=== PATIENT | female | born 1950 | race Caucasian/White ===

== ENCOUNTER 2017-08-11 11:30 | Outpatient (CLI) | payer MEDICARE, OTHER ==
--- NOTE | 2017-08-11 15:58 | XRAY Report ---
DATE OF SERVICE: 08/11/2017 TWO VIEW CHEST: 08/11/2017 CLINICAL INDICATION: Shortness of breath. COMPARISON: 12/10/2013. FINDINGS: Frontal and lateral views of the chest demonstrate a normal cardiac silhouette. The lungs appear hyperinflated, suggestive of COPD. No focal consolidation, effusion, or pneumothorax is present. IMPRESSION: HYPERINFLATION, BUT NO EVIDENCE OF ACUTE CARDIOPULMONARY DISEASE. TD: 08/11/2017 16:57
== END 2017-08-11 11:31 | disposition home or self-care (01) ==
LOC: DI.S 11:30
PROVIDERS: ATTEND Physician Assistant
DX: R06.02 Shortness of breath (principal)
CPT/HCPCS: 71046

== ENCOUNTER 2017-08-14 11:17 | Outpatient (CLI) | payer MEDICARE, OTHER ==
[2017-08-14 17:51] LABS: HB2 TOTAL 14.9 g/dL; HEMOGLOBIN A1C 0.64 g/dL; HEMOGLOBIN A1C % 6.1 % (4.6-6.2)
[2017-08-14 17:55] LABS: ALBUMIN/GLOBULIN RATIO 1.3 (1.0-2.2); ALKALINE PHOSPHATASE 70 IU/L (42-121); ALT ALANINE AMINOTRANSFERASE 20 IU/L (10-60); AST ASPARTATE AMINOTRANSFERASE 22 IU/L (10-42); BILIRUBIN,TOTAL 0.4 mg/dL (0.2-1.0); BUN - BLOOD UREA NITROGEN 26 mg/dL (6-20); CALCIUM 9.6 mg/dL (8.5-10.3); CARBON DIOXIDE - CO2 27 mmol/L (21-32); CHLORIDE 103 mmol/L (101-111); CHOL/HDL RATIO 5.7 (<4.4); CHOLESTEROL 255 mg/dL; CREATININE 0.8 mg/dL (0.4-1.0); GFR - MDRD 71 (>89); GLUCOSE 110 mg/dL (70-100); HDL CHOLESTEROL 45 mg/dL; LDL CHOLESTEROL,CALCULATED 158 mg/dL; LDL/HDL RATIO 3.5 (<4.4); SODIUM 138 mmol/L (135-145); TOTAL PROTEIN 7.2 g/dL (6.7-8.2); VLDL CHOLESTEROL 52 mg/dL
[2017-08-14 18:15] LABS: BASOPHILS # (AUTO) 0.1 10^3/uL (0.0-0.1); BASOPHILS % (AUTO) 1.2 %; EOSINOPHILS # (AUTO) 0.4 10^3/uL (0.0-0.7); EOSINOPHILS % (AUTO) 5.8 %; HGB - HEMOGLOBIN 13.9 g/dL (12.0-16.0); LYMPHOCYTES # (AUTO) 1.9 10^3/uL (1.5-3.5); LYMPHOCYTES % (AUTO) 29.1 %; MEAN CORPUSCULAR HEMOGLOBIN 28.5 pg (27.0-31.0); MEAN CORPUSCULAR HGB CONC 31.9 g/dL (32.0-36.0); MEAN CORPUSCULAR VOLUME 89.4 fL (81.0-99.0); MONOCYTES # (AUTO) 0.5 10^3/uL (0.0-1.0); MONOCYTES % (AUTO) 7.7 %; NEUTROPHILS # (AUTO) 3.7 10^3/uL (1.5-6.6); NEUTROPHILS % (AUTO) 56.2 %; PLT - PLATELET COUNT 191 10^3/uL (130-450); RED BLOOD COUNT 4.88 10^6/uL (4.20-5.40); WHITE BLOOD COUNT 6.6 x10^3/uL (4.8-10.8)
== END 2017-08-14 11:18 | disposition home or self-care (01) ==
LOC: LAB.F 11:17
PROVIDERS: ATTEND Physician Assistant
DX: I10 Essential (primary) hypertension (principal); E78.5 Hyperlipidemia, unspecified; R73.01 Impaired fasting glucose
CPT/HCPCS: 36415; 80053; 80061; 83036; 83721; 85025

== ENCOUNTER 2017-11-21 11:29 | Outpatient (CLI) | payer MEDICARE, OTHER ==
[2017-11-21 18:50] LABS: ALBUMIN 4.1 g/dL (3.2-5.5); ALKALINE PHOSPHATASE 80 IU/L (42-121); ALT ALANINE AMINOTRANSFERASE 24 IU/L (10-60); AST ASPARTATE AMINOTRANSFERASE 26 IU/L (10-42); BILIRUBIN,DIRECT 0.1 mg/dL (0.1-0.5); BILIRUBIN,TOTAL 0.7 mg/dL (0.2-1.0); CHOL/HDL RATIO 3.1 (<4.4); CHOLESTEROL 129 mg/dL; GLUCOSE,FASTING 102 mg/dL (70-100); HDL CHOLESTEROL 41 mg/dL; LDL CHOLESTEROL,CALCULATED 63 mg/dL; LDL/HDL RATIO 1.5 (<4.4); TOTAL PROTEIN 7.5 g/dL (6.7-8.2); VLDL CHOLESTEROL 25 mg/dL
[2017-11-21 19:18] LABS: HB2 TOTAL 15.7 g/dL; HEMOGLOBIN A1C 0.64 g/dL; HEMOGLOBIN A1C % 5.9 % (4.6-6.2)
== END 2017-11-21 11:30 | disposition home or self-care (01) ==
LOC: LAB.F 11:29
PROVIDERS: ATTEND Physician Assistant
DX: E78.5 Hyperlipidemia, unspecified (principal); R73.01 Impaired fasting glucose
CPT/HCPCS: 36415; 80061; 80076; 82947; 83036; 83721

== ENCOUNTER 2018-01-16 08:13 | Emergency (ER) | payer MEDICARE, OTHER ==
[2018-01-16] MEDS ORDERED: diltiaZEM INJ 5 MG/ML VIAL IVP STA (08:37)
[2018-01-16] MEDS ORDERED: SODIUM CHLORIDE 0.9% 1,000 ML IV ONE (08:37)
[2018-01-16 09:12] LABS: BASOPHILS # (AUTO) 0.1 10^3/uL (0.0-0.1); BASOPHILS % (AUTO) 0.8 %; EOSINOPHILS # (AUTO) 0.4 10^3/uL (0.0-0.7); EOSINOPHILS % (AUTO) 4.3 %; HGB - HEMOGLOBIN 14.2 g/dL (12.0-16.0); LYMPHOCYTES # (AUTO) 2.1 10^3/uL (1.5-3.5); LYMPHOCYTES % (AUTO) 23.4 %; MEAN CORPUSCULAR HEMOGLOBIN 29.5 pg (27.0-31.0); MEAN CORPUSCULAR HGB CONC 32.8 g/dL (32.0-36.0); MEAN CORPUSCULAR VOLUME 90.1 fL (81.0-99.0); MEAN PLATELET VOLUME 8.1 fL (7.9-10.8); MONOCYTES # (AUTO) 0.7 10^3/uL (0.0-1.0); MONOCYTES % (AUTO) 8.4 %; NEUTROPHILS # (AUTO) 5.5 10^3/uL (1.5-6.6); NEUTROPHILS % (AUTO) 63.1 %; PLT - PLATELET COUNT 158 10^3/uL (130-450); WHITE BLOOD COUNT 8.8 x10^3/uL (4.8-10.8)
--- NOTE | 2018-01-16 09:18 | ED Physician Documentation ---
PD HPI LOWER EXT INJURY - Stated complaint Stated Complaint: R LEG PX - Chief complaint Chief Complaint: Ext Problem - History obtained from History obtained from: Patient - History of Present Illness PD HPI LOW EXT INJURY LOCATION: Right, Foot, Calf Timing - details: Still present Worsened by: Other (weight bearing) Associated symptoms: Swelling - Additional information Additional information: The patient is a 67-year-old female with history of venous stasis dermatitis, who presents with increased swelling and pain in her right foot and calf. She has been treating a blister on her right heel that appeared at least 1 month ago after wearing shoes that were too tight. She has been treating it topically with Neosporin, and she has noticed some healing of the wound. However over the past week she has noticed increased swelling of her calf, and pain associated with weightbearing. She denies fever or shortness of breath. Review of Systems Constitutional: denies: Fever Nose: denies: Congestion Cardiac: denies: Chest pain / pressure Respiratory: denies: Dyspnea, Cough GI: denies: Abdominal Pain, Nausea, Vomiting : denies: Dysuria Skin: reports: Lesions (right heel) Musculoskeletal: reports: Extremity swelling (right calf) Neurologic: denies: Focal weakness, Numbness, Headache PD PAST MEDICAL HISTORY - Past Medical History Past Medical History: Yes Cardiovascular: Hypertension, High cholesterol Respiratory: Tuberculosis : None HEENT: Other Musculoskeletal: Rheumatoid arthritis, Gout, Chronic back pain Derm: Other - Past Surgical History Past Surgical History: Yes Ortho: Hip replacement, Carpal Tunnel surgery /[employer]: Mastectomy HEENT: Cataracts Derm: Skin cancer surgery - Present Medications Home Medications: Ambulatory Orders Medication Instructions Recorded Confirmed Levofloxacin 500 mg PO DAILY 08/06/13 08/06/13 Carvedilol [Coreg] 0 mg PO DAILY 08/10/13 08/10/13 Lisinopril [Zestril] 10 mg PO DAILY 08/10/13 08/10/13 Doxycycline [Vibramycin] 100 mg PO BID 10/22/13 10/22/13 - Allergies Allergies/Adverse Reactions: Allergies Allergy/AdvReac Type Severity Reaction Status Date / Time ethambutol [Ethambutol] Allergy Unknown Rash Verified 01/16/18 09:55 metoprolol Allergy Unknown Rash Verified 01/16/18 09:55 oxymetazoline [Oxymetazoline] Allergy Unknown Rash Verified 01/16/18 09:55 Sulfa (Sulfonamide Allergy Unknown Rash Verified 01/16/18 09:55 Antibiotics) - Social History Does the pt smoke?: No Smoking Status: Never smoker Does the pt drink ETOH?: No Does the pt have substance abuse?: No - Immunizations Immunizations: TDAP current <10years PD ED PE NORMAL - Vitals Vital signs reviewed: Yes (hypertensive) - General General: Alert and oriented X 3, Well developed/nourished, Other (Overweight) - HEENT HEENT: Atraumatic - Neck Neck: No adenopathy, No JVD - Cardiac Cardiac: RRR, No murmur - Respiratory Respiratory: No respiratory distress, Clear bilaterally - Abdomen Abdomen: Soft, Non tender - Back Back: No CVA TTP - Derm Derm: No rash - Extremities Extremities: Other (There is a 1 cm diameter healing open wound on the posterior aspect of the right heel, over the Achilles. There is brawny discoloration to the anterior shins bilaterally, and 1+ pedal edema on the right. There is associated mild tenderness to palpation of the calf.) - Neuro Neuro: Alert and oriented X 3, No motor deficit, Normal speech Results - Vitals Vitals: Vital Signs - 24 hr 01/16/18 08:40 Heart Rate 97 Respiratory 15 Rate Blood Pressure 170/118 H O2 Saturation 95 Oxygen O2 Source Room air - Labs Labs: Laboratory Tests 01/16/18 01/16/18 01/16/18 09:05 09:05 09:05 WBC 8.8 RBC 4.80 Hgb 14.2 Hct 43.2 MCV 90.1 MCH 29.5 MCHC 32.8 RDW 14.0 Plt Count 158 MPV 8.1 Neut # (Auto) 5.5 Lymph # (Auto) 2.1 [place] # (Auto) 0.7 Eos # (Auto) 0.4 Baso # (Auto) 0.1 Absolute Nucleated RBC 0.00 Nucleated RBC % 0.0 Sodium 137 Potassium 4.3 Chloride 102 Carbon Dioxide 26 Anion Gap 9.0 BUN 20 Creatinine 0.9 Estimated GFR (MDRD) 62 L Glucose 115 H Calcium 9.6 Total Bilirubin 0.5 AST 26 ALT 25 Alkaline Phosphatase 75 Troponin I < 0.04 Total Protein 7.6 Albumin 3.7 Globulin 3.9 Albumin/Globulin Ratio 0.9 L Lipase 37 - Rads (name of study) Venous U/S right LE Radiology: Prelim report reviewed, See rad report (Normal. No evidence for DVT. ) PD MEDICAL DECISION MAKING - ED course Complexity details: reviewed results, re-evaluated patient, considered differential, d/w patient ED course: Patient's presentation is most consistent with a healing wound on the right heel , with longtime leg swelling from venous stasis. Ultrasound of the right lower extremity reveals no evidence of DVT. I discussed with her the results of the ultrasound, symptomatic treatment and wound care, as well as potentially worrisome signs or symptoms that should prompt reevaluation in the emergency department - Sepsis Event Vital Signs: Vital Signs - 24 hr 01/16/18 08:40 Heart Rate 97 Respiratory 15 Rate Blood Pressure 170/118 H O2 Saturation 95 Oxygen O2 Source Room air Departure - Departure Disposition: 01 Home, Self Care Clinical Impression: Traumatic open wound of right lower leg with delayed healing Clinical Impression: (Ruled Out): Deep vein thrombosis Condition: Stable Instructions: ED Wound Care Follow-Up: Tiny Chandler PA [Primary Care Provider] - Comments: Keep the wound clean, and apply antibiotic ointment daily. Keep your right leg elevated as much the time as possible. Follow up with your primary physician as planned. Return to the emergency department if you develop increasing redness or swelling of the leg or wound site, or otherwise worsening symptoms.
[2018-01-16 09:29] LABS: ALBUMIN 3.7 g/dL (3.2-5.5); ALBUMIN/GLOBULIN RATIO 0.9 (1.0-2.2); BILIRUBIN,TOTAL 0.5 mg/dL (0.2-1.0); CALCIUM 9.6 mg/dL (8.5-10.3); CREATININE 0.9 mg/dL (0.4-1.0); TOTAL PROTEIN 7.6 g/dL (6.7-8.2)
--- NOTE | 2018-01-16 10:28 | Ultrasound Report ---
Procedure Date: 01/16/2018 Accession Number: [id number] / [id number] Procedure: US - Duplex Ext Veins Right CPT Code: FULL RESULT: EXAM: Duplex Ext Veins Right DATE: 01/16/2018 10:24 AM CLINICAL HISTORY: Right calf pain and swelling. COMPARISON: None. TECHNIQUE: Real-time sonographic vascular imaging was performed by the drywall stripper through the lower extremity utilizing both color-flow and Doppler spectral analysis. Multiple canvas products sales representative static images were saved for review. FINDINGS: Common Femoral Vein (CFV): Normal. Superficial Femoral Vein (SFV) Prox: Normal. Superficial Femoral Vein (SFV) Mid: Normal. Superficial Femoral Vein (SFV) Dist: Normal. Popliteal Vein: Normal. Posterior Tibial Veins: Normal. Peroneal Veins: Normal. Other: None. IMPRESSION: Normal. No evidence for deep venous thrombosis. [facility]
[2018-01-16 11:23] VITALS: BP 164/108
== END 2018-01-16 11:23 | disposition home or self-care (01) ==
LOC: ED 08:13
DX: S81.801A Unspecified open wound, right lower leg, initial encounter (principal); X58.XXXA Exposure to other specified factors, initial encounter; M06.9 Rheumatoid arthritis, unspecified; I10 Essential (primary) hypertension; E78.00 Pure hypercholesterolemia, unspecified
CPT/HCPCS: 36415; 80053; 83690; 84484; 85025; 99283

== ENCOUNTER 2018-03-27 10:50 | Outpatient (CLI) | payer MEDICARE, OTHER ==
[2018-03-27 18:05] LABS: CHOL/HDL RATIO 3.5 (<4.4); CHOLESTEROL 164 mg/dL; HB2 TOTAL 15.4 g/dL; HDL CHOLESTEROL 47 mg/dL; HEMOGLOBIN A1C 0.7 g/dL; HEMOGLOBIN A1C % 6.3 % (4.6-6.2); LDL CHOLESTEROL,CALCULATED 85 mg/dL; LDL/HDL RATIO 1.8 (<4.4); VLDL CHOLESTEROL 32 mg/dL
== END 2018-03-27 10:51 | disposition home or self-care (01) ==
LOC: LAB.F 10:50
PROVIDERS: ATTEND Physician Assistant
DX: E78.5 Hyperlipidemia, unspecified (principal); R73.01 Impaired fasting glucose
CPT/HCPCS: 36415; 80061; 83036; 83721

== ENCOUNTER 2018-06-23 09:10 | Outpatient (CLI) | payer MEDICARE, OTHER ==
[2018-06-23 18:09] LABS: BASOPHILS # (AUTO) 0.1 10^3/uL (0.0-0.1); BASOPHILS % (AUTO) 0.7 %; EOSINOPHILS # (AUTO) 0.4 10^3/uL (0.0-0.7); HGB - HEMOGLOBIN 14.5 g/dL (12.0-16.0); LYMPHOCYTES # (AUTO) 1.4 10^3/uL (1.5-3.5); LYMPHOCYTES % (AUTO) 18.4 %; MEAN CORPUSCULAR HEMOGLOBIN 28.8 pg (27.0-31.0); MEAN PLATELET VOLUME 8.9 fL (7.9-10.8); MONOCYTES # (AUTO) 0.5 10^3/uL (0.0-1.0); MONOCYTES % (AUTO) 6.9 %; NEUTROPHILS # (AUTO) 5.4 10^3/uL (1.5-6.6); PLT - PLATELET COUNT 175 10^3/uL (130-450); RED BLOOD COUNT 5.04 10^6/uL (4.20-5.40); RED CELL DISTRIBUTION WIDTH 13.7 % (12.0-15.0); WHITE BLOOD COUNT 7.8 x10^3/uL (4.8-10.8)
[2018-06-23 18:29] LABS: ALBUMIN/GLOBULIN RATIO 1.1 (1.0-2.2); BILIRUBIN,TOTAL 0.5 mg/dL (0.2-1.0); CALCIUM 9.6 mg/dL (8.5-10.3); CREATININE 0.8 mg/dL (0.4-1.0); TOTAL PROTEIN 7.5 g/dL (6.7-8.2)
== END 2018-06-23 09:11 | disposition home or self-care (01) ==
LOC: LAB.F 09:10
PROVIDERS: ATTEND Nurse Practitioner Family
DX: L53.9 Erythematous condition, unspecified (principal)
CPT/HCPCS: 36415; 80053; 85025

== ENCOUNTER 2018-06-23 10:15 | Outpatient (CLI) | payer MEDICARE, OTHER ==
--- NOTE | 2018-06-23 15:06 | XRAY Report ---
Reason: ERYTHEMATOUS CONDITION,UNSPECIFIED Procedure Date: 06/23/2018 Accession Number: [id number] / [id number] Procedure: XR - Foot 3 View RT CPT Code: FULL RESULT: EXAM: RIGHT FOOT RADIOGRAPHY EXAM DATE: 06/23/2018 10:39 AM. CLINICAL HISTORY: ERYTHEMATOUS CONDITION,UNSPECIFIED. COMPARISON: MRI 07/18/2006. TECHNIQUE: 3 views. FINDINGS: Bones: Acute or subacute fracture of the first digit distal phalanx. There is sclerosis, soft tissue swelling. Chronic fracture of second metatarsus Joints: Normal. No subluxations. Soft Tissues: Soft tissue swelling. IMPRESSION: Acute to subacute fracture of the first digit distal phalanx. If there is clinical concern for infection MRI can be completed [facility]
== END 2018-06-23 10:16 | disposition home or self-care (01) ==
LOC: DI 10:15
PROVIDERS: ATTEND Nurse Practitioner Family
DX: S92.421A Displaced fracture of distal phalanx of right great toe, initial encounter for closed fracture (principal)
CPT/HCPCS: 36415; 80053; 85025

== ENCOUNTER 2018-07-15 15:44 | Outpatient (CLI) | payer MEDICARE, OTHER ==
--- NOTE | 2018-07-16 12:51 | CT Report ---
Reason: UNSPECIFIED FRACTURE OF RIGHT TOE,SUBSEQUENT ENCOU Procedure Date: 07/15/2018 Accession Number: [id number] / [id number] Procedure: CT - Lower Extremity Right W/O CPT Code: FULL RESULT: EXAM: RIGHT FOOT CT WITHOUT CONTRAST EXAM DATE: 07/15/2018 03:56 PM. CLINICAL HISTORY: Right toe fracture. Patient stubbed toe. COMPARISON: Radiograph 06/23/2018. TECHNIQUE: Thin-section coronal images were acquired of the foot without contrast. Post-processing: Axial and sagittal reformats. Other: None. In accordance with CT protocol optimization, one or more of the following dose reduction techniques were utilized for this exam: automated exposure control, adjustment of mA and/or KV based on patient size, or use of iterative reconstructive technique. FINDINGS: Bones: A transverse fracture through the proximal portion of the first distal phalanx is extra-articular. There is less than 1 mm the bone fragments. Some nonbridging callus formation has formed since the prior examination. Joints: The joint spaces are preserved. No calcified loose bodies. No large effusion. Musculature: Normal. No fatty atrophy. Other: Extensive subcutaneous edema surrounds the ankle. No tibiotalar joint effusion. IMPRESSION: The first distal phalanx fracture is not yet united. [facility]
== END 2018-07-15 15:45 | disposition home or self-care (01) ==
LOC: DI 15:44
PROVIDERS: ATTEND Physician Assistant
DX: S92.421D Displaced fracture of distal phalanx of right great toe, subsequent encounter for fracture with routine healing (principal)

== ENCOUNTER 2018-12-29 13:24 | Outpatient (CLI) | payer MEDICARE, OTHER ==
[~2018-12-29 13:24] MED LIST: ALBUTEROL NEB 2.5 MG/3 ML INH SCH
== END 2018-12-29 13:25 | disposition home or self-care (01) ==
LOC: RT 13:24
PROVIDERS: ATTEND Nurse Practitioner Family
DX: R06.02 Shortness of breath (principal)
CPT/HCPCS: 94060

== ENCOUNTER 2019-03-31 07:55 | Outpatient (CLI) | payer MEDICARE, OTHER ==
[2019-03-31 10:29] LABS: ALBUMIN/GLOBULIN RATIO 1.1 (1.0-2.2); ALKALINE PHOSPHATASE 82 IU/L (42-121); ALT ALANINE AMINOTRANSFERASE 26 IU/L (10-60); AST ASPARTATE AMINOTRANSFERASE 21 IU/L (10-42); BILIRUBIN,TOTAL 0.8 mg/dL (0.2-1.0); BUN - BLOOD UREA NITROGEN 30 mg/dL (6-20); CARBON DIOXIDE - CO2 31 mmol/L (21-32); CHLORIDE 102 mmol/L (101-111); CHOL/HDL RATIO 2.7 (<4.4); CHOLESTEROL 124 mg/dL; GFR - MDRD 55 (>89); GLUCOSE 147 mg/dL (70-100); HDL CHOLESTEROL 46 mg/dL; LDL CHOLESTEROL,CALCULATED 54 mg/dL; LDL/HDL RATIO 1.2 (<4.4); SODIUM 141 mmol/L (135-145); TOTAL PROTEIN 7.6 g/dL (6.7-8.2); VLDL CHOLESTEROL 24 mg/dL
[2019-03-31 10:45] LABS: HB2 TOTAL 14.2 g/dL; HEMOGLOBIN A1C 0.71 g/dL; HEMOGLOBIN A1C % 6.7 % (4.6-6.2)
== END 2019-03-31 07:56 | disposition home or self-care (01) ==
LOC: LAB.S 07:55
PROVIDERS: ATTEND Physician Assistant
DX: E78.2 Mixed hyperlipidemia (principal); R73.01 Impaired fasting glucose
CPT/HCPCS: 36415; 80053; 80061; 83036; 83721

== ENCOUNTER 2020-01-04 12:33 | Outpatient (CLI) | payer MEDICARE, OTHER ==
--- NOTE | 2020-01-04 17:18 | Ultrasound Report ---
PROCEDURE: Duplex Lwr Ext Arterial RT INDICATIONS: PERIPHERAL VASCULAR DISEASE TECHNIQUE: Color and pulse Doppler interrogation was performed of the right lower extremity arterial system, wit h image documentation. COMPARISON: Ultrasound JAMMIE 01/04/2020 FINDINGS: Common femoral artery: 168 cm/sec, with monophasic flow. Deep femoral artery: 76 cm/sec, with monophasic flow. Proximal superficial femoral artery: 49 cm/sec, with monophasic flow. Mid superficial femoral artery: 45 cm/sec, with monophasic flow. Distal superficial femoral artery: 37 cm/sec, with monophasic flow. Popliteal artery: 65 cm/sec, with monophasic flow. Posterior tibial artery: 30 cm/sec, with monophasic flow. Anterior tibial artery/dorsalis pedis: 55/14 cm/sec, with monophasic flow. [place]-scale imaging description: Scattered vascular calcifications. IMPRESSION: Diffuse monophasic flow with decreased waveform suggestive of diffuse vascular disease. Reviewed by: Janee De Los Santos MD on 01/04/2020 5:16 PM PDT Approved by: Janee De Los Santos MD on 01/04/2020 5:16 PM PDT Station ID: [id number]
--- NOTE | 2020-01-04 17:19 | Ultrasound Report ---
PROCEDURE: Ankle Brachial Index INDICATIONS: PERIPHERAL VASCULAR DISEASE TECHNIQUE: Ankle-brachial indices were obtained bilaterally and recorded. COMPARISONS: None. FINDINGS: Right ankle brachial index (JAMMIE): 0.49 Left ankle brachial index (JAMMIE): 0.76 Healing potential: Ankle pressures >55 mm Hg in non-diabetics and >80 mm Hg in diabetics are likely to achieve primary h ealing of ischemic foot ulcers. Toe pressures >30 mm Hg are likely to achieve primary healing of ischemic foot ulcers, toe or transme tatarsal amputations. IMPRESSION: 1. Severe right arterial disease based on JAMMIE. 2. Moderate left arterial disease based on JAMMIE. Reviewed by: Janee De Los Santos MD on 01/04/2020 5:18 PM PDT Approved by: Janee De Los Santos MD on 01/04/2020 5:18 PM PDT Station ID: [id number]
== END 2020-01-04 12:34 | disposition home or self-care (01) ==
LOC: DI 12:33
PROVIDERS: ATTEND Nurse Practitioner Family
DX: I73.9 Peripheral vascular disease, unspecified (principal)
CPT/HCPCS: 93922

== ENCOUNTER 2020-04-07 10:35 | Outpatient (CLI) | payer MEDICARE, OTHER ==
[2020-04-07 15:59] LABS: BUN - BLOOD UREA NITROGEN 25 mg/dL (6-20); CALCIUM 9.6 mg/dL (8.5-10.3); CARBON DIOXIDE - CO2 26 mmol/L (21-32); CHLORIDE 103 mmol/L (101-111); CHOL/HDL RATIO 3.3 (<4.4); CHOLESTEROL 137 mg/dL; CREATININE 1.1 mg/dL (0.4-1.0); GLUCOSE 137 mg/dL (70-100); HDL CHOLESTEROL 41 mg/dL; LDL CHOLESTEROL,CALCULATED 52 mg/dL; LDL/HDL RATIO 1.3 (<4.4); SODIUM 139 mmol/L (135-145); VLDL CHOLESTEROL 44 mg/dL
== END 2020-04-07 10:36 | disposition home or self-care (01) ==
LOC: LAB.S 10:35
PROVIDERS: ATTEND Internal Medicine Cardiovascular Disease
DX: I10 Essential (primary) hypertension (principal); I74.09 Other arterial embolism and thrombosis of abdominal aorta
CPT/HCPCS: 36415; 80048; 80061; 83721

== ENCOUNTER 2020-06-02 10:47 | Outpatient (CLI) | payer MEDICARE, OTHER ==
[2020-06-02 15:12] LABS: CREATININE 1.5 mg/dL (0.4-1.0)
== END 2020-06-02 10:48 | disposition home or self-care (01) ==
LOC: LAB.S 10:47
PROVIDERS: ATTEND Nurse Practitioner Family
DX: R94.4 Abnormal results of kidney function studies (principal)
CPT/HCPCS: 36415; 80048

== ENCOUNTER 2020-06-06 16:16 | Outpatient (CLI) | payer MEDICARE, OTHER ==
[2020-06-06 20:05] LABS: PARTIAL THROMBOPLASTIN TIME 27.5 secs (24.9-33.3)
[2020-06-06 20:27] LABS: BASOPHILS # (AUTO) 0.1 10^3/uL (0.0-0.1); BASOPHILS % (AUTO) 0.7 %; EOSINOPHILS # (AUTO) 0.2 10^3/uL (0.0-0.7); EOSINOPHILS % (AUTO) 3.2 %; HGB - HEMOGLOBIN 13.1 g/dL (12.0-16.0); LYMPHOCYTES # (AUTO) 1.4 10^3/uL (1.5-3.5); LYMPHOCYTES % (AUTO) 21.2 %; MEAN CORPUSCULAR HEMOGLOBIN 28.4 pg (27.0-31.0); MEAN CORPUSCULAR HGB CONC 30.8 g/dL (32.0-36.0); MEAN CORPUSCULAR VOLUME 92.2 fL (81.0-99.0); MEAN PLATELET VOLUME 11.2 fL (7.9-10.8); MONOCYTES # (AUTO) 0.6 10^3/uL (0.0-1.0); MONOCYTES % (AUTO) 9.1 %; NEUTROPHILS # (AUTO) 4.4 10^3/uL (1.5-6.6); NEUTROPHILS % (AUTO) 65.5 %; PLT - PLATELET COUNT 241 10^3/uL (130-450); RED BLOOD COUNT 4.62 10^6/uL (4.20-5.40); RED CELL DISTRIBUTION WIDTH 13.8 % (12.0-15.0); WHITE BLOOD COUNT 6.8 x10^3/uL (4.8-10.8)
[2020-06-06 20:37] LABS: INR 1.1 (0.8-1.2); PT - PROTHROMBIN TIME 12.6 secs (9.9-12.6)
[2020-06-06 20:40] LABS: ALBUMIN 3.9 g/dL (3.2-5.5); ALBUMIN/GLOBULIN RATIO 1.1 (1.0-2.2); BILIRUBIN,TOTAL 0.3 mg/dL (0.2-1.0); CALCIUM 9.3 mg/dL (8.5-10.3); TOTAL PROTEIN 7.5 g/dL (6.7-8.2)
[2020-06-06 21:09] LABS: HEMOGLOBIN A1c% 6.7 % (4.27-6.07)
== END 2020-06-06 16:17 | disposition home or self-care (01) ==
LOC: LAB.S 16:16
PROVIDERS: ATTEND Nurse Practitioner Family
DX: Z01.818 Encounter for other preprocedural examination (principal); R19.7 Diarrhea, unspecified; E11.9 Type 2 diabetes mellitus without complications
CPT/HCPCS: 36415; 80053; 83036; 84443; 85025; 85610; 85730

== ENCOUNTER 2020-12-19 15:45 | Outpatient (CLI) | payer MEDICARE, OTHER ==
[2020-12-19 20:12] LABS: ESTIMATED AVERAGE GLUCOSE 146 mg/dL (70-100); HEMOGLOBIN A1c% 6.7 % (4.27-6.07)
== END 2020-12-19 15:46 | disposition home or self-care (01) ==
LOC: LAB.S 15:45
PROVIDERS: ATTEND Nurse Practitioner Family
DX: E11.69 Type 2 diabetes mellitus with other specified complication (principal)
CPT/HCPCS: 36415; 83036

== ENCOUNTER 2021-08-15 09:34 | Outpatient (CLI) | payer MEDICARE, OTHER ==
[2021-08-15 15:14] LABS: BASOPHILS # (AUTO) 0.1 10^3/uL (0.0-0.1); BASOPHILS % (AUTO) 0.9 %; EOSINOPHILS # (AUTO) 0.5 10^3/uL (0.0-0.7); EOSINOPHILS % (AUTO) 8.3 %; HCT - HEMATOCRIT 45.2 % (37.0-47.0); LYMPHOCYTES # (AUTO) 1.5 10^3/uL (1.5-3.5); LYMPHOCYTES % (AUTO) 22.5 %; MEAN CORPUSCULAR HEMOGLOBIN 28.3 pg (27.0-31.0); MEAN CORPUSCULAR VOLUME 91.3 fL (81.0-99.0); MEAN PLATELET VOLUME 11.1 fL (7.9-10.8); MONOCYTES # (AUTO) 0.5 10^3/uL (0.0-1.0); MONOCYTES % (AUTO) 7.1 %; NEUTROPHILS % (AUTO) 60.9 %; PLT - PLATELET COUNT 221 10^3/uL (130-450); RED BLOOD COUNT 4.95 10^6/uL (4.20-5.40); RED CELL DISTRIBUTION WIDTH 13.3 % (12.0-15.0); WHITE BLOOD COUNT 6.5 x10^3/uL (4.8-10.8)
[2021-08-15 15:48] LABS: CREATININE,URINE 72.5 mg/dL
[2021-08-15 17:07] LABS: ALBUMIN 3.6 g/dL (3.2-5.5); ALBUMIN/GLOBULIN RATIO 1.1 (1.0-2.2); ALKALINE PHOSPHATASE 93 IU/L (42-121); ALT ALANINE AMINOTRANSFERASE 20 IU/L (10-60); AST ASPARTATE AMINOTRANSFERASE 18 IU/L (10-42); BILIRUBIN,TOTAL 0.6 mg/dL (0.2-1.0); BUN - BLOOD UREA NITROGEN 33 mg/dL (6-20); CALCIUM 9.6 mg/dL (8.5-10.3); CARBON DIOXIDE - CO2 26 mmol/L (21-32); CHLORIDE 102 mmol/L (101-111); CHOL/HDL RATIO 3.3 (<4.4); CHOLESTEROL 137 mg/dL; CREATININE 1.1 mg/dL (0.4-1.0); GFR - MDRD 49 (>89); GLUCOSE 148 mg/dL (70-100); HDL CHOLESTEROL 41 mg/dL; LDL CHOLESTEROL,CALCULATED 56 mg/dL; LDL CHOLESTEROL,DIRECT 64 mg/dL; LDL/HDL RATIO 1.4 (<4.4); SODIUM 136 mmol/L (135-145); TOTAL PROTEIN 6.8 g/dL (6.7-8.2); TRIGLYCERIDES 199 mg/dL; VLDL CHOLESTEROL 40 mg/dL
[2021-08-15 18:00] LABS: THYROID STIMULATING HORMONE 1.48 uIU/mL (0.34-5.60)
[2021-08-15 18:04] LABS: FREE T4 (FREE THYROXINE) 0.9 ng/dL (0.58-1.64)
[2021-08-15 20:59] LABS: ESTIMATED AVERAGE GLUCOSE 154 mg/dL (70-100)
== END 2021-08-15 09:35 | disposition home or self-care (01) ==
LOC: LAB.S 09:34
PROVIDERS: ATTEND Nurse Practitioner
DX: E78.5 Hyperlipidemia, unspecified (principal); I10 Essential (primary) hypertension; E11.69 Type 2 diabetes mellitus with other specified complication
CPT/HCPCS: 36415; 80048; 80053; 80061; 82043; 82570; 83036; 83721; 84439; 84443; 85025

== ENCOUNTER 2021-10-04 15:12 | Outpatient (CLI) | payer MEDICARE, OTHER ==
--- NOTE | 2021-10-05 11:12 | Ultrasound Report ---
PROCEDURE: Ankle Brachial Index INDICATIONS: PAIN IN RIGHT LOWER LIMB TECHNIQUE: Ankle-brachial indices were obtained bilaterally and recorded. COMPARISONS: None. FINDINGS: Right ankle brachial index (JAMMIE): 0.56 Left ankle brachial index (JAMMIE): 0.83 Healing potential: Ankle pressures >55 mm Hg in non-diabetics and >80 mm Hg in diabetics are likely to achieve primary h ealing of ischemic foot ulcers. Toe pressures >30 mm Hg are likely to achieve primary healing of ischemic foot ulcers, toe or transme tatarsal amputations. IMPRESSION: Arterial disease is noted mild on the left and moderate to severe on the right. Reviewed by: Janee De Los Santos MD on 10/05/2021 11:11 AM PDT Approved by: Janee De Los Santos MD on 10/05/2021 11:11 AM PDT Station ID: [id number]
--- NOTE | 2021-10-05 22:51 | Ultrasound Report ---
PROCEDURE: Duplex Lwr Ext Arterial RT INDICATIONS: PAIN IN RIGHT LOWER LIMB TECHNIQUE: Color and pulse Doppler interrogation was performed of the right lower extremity arterial system, wit h image documentation. COMPARISON: 01/04/2020 FINDINGS: Right ankle brachial index is 0.56, left ankle brachial index is 0.83 Right leg: Common femoral artery: 189.1 cm/sec, with monophasic flow. Deep femoral artery: 225.5 cm/sec, with monophasic flow. Proximal superficial femoral artery: 153.8 cm/sec, with monophasic flow. Mid superficial femoral artery: 141.0 cm/sec, with monophasic flow. Distal superficial femoral artery: 76.3 cm/sec, with monophasic flow. Popliteal artery: 16.3 cm/sec, with monophasic flow. Posterior tibial artery: 27.1 cm/sec, with monophasic flow. Anterior tibial artery/dorsalis pedis: 52.9/13.3 cm/sec, with monophasic/monophasic flow. [place]-scale imaging description: Monophasic waveforms in the common femoral suggests possible hemodyn amically significant inflow disease. Calcific plaque, proximal SFA. In the right mid SFA there is a t ripling of velocity suggesting a stenosis of 75% or greater. The distal SFA has monophasic parvus tar dus waveform suggesting hemodynamically significant stenosis proximal to the distal SFA. Popliteal ar debbie also has parvus tardus waveforms. IMPRESSION: 1. Probable inflow stenotic disease proximal to the inguinal ligament. 2. Diffuse plaque. 3. Findings are consistent with a greater than 75% stenosis of the mid SFA. There is a greater than t ripling of the velocity. Distal to this area, vessels have monophasic parvus tardus waveforms. Reviewed by: Marlon Butler MD on 10/05/2021 10:49 PM PDT Approved by: Marlon Butler MD on 10/05/2021 10:49 PM PDT Station ID: [id number]
== END 2021-10-04 15:13 | disposition home or self-care (01) ==
LOC: DI 15:12
PROVIDERS: ATTEND Nurse Practitioner Family
DX: I70.203 Unspecified atherosclerosis of native arteries of extremities, bilateral legs (principal)
CPT/HCPCS: 93922

== ENCOUNTER 2021-12-26 10:45 | Outpatient (CLI) | payer MEDICARE, OTHER ==
[2021-12-26 20:41] LABS: ESTIMATED AVERAGE GLUCOSE 151 mg/dL (70-100); HEMOGLOBIN A1c% 6.9 % (4.27-6.07)
== END 2021-12-26 10:46 | disposition home or self-care (01) ==
LOC: LAB.S 10:45
PROVIDERS: ATTEND Nurse Practitioner Family
DX: E11.9 Type 2 diabetes mellitus without complications (principal)
CPT/HCPCS: 36415; 83036

== ENCOUNTER 2022-01-18 08:40 | Outpatient (CLI) | payer MEDICARE, OTHER | END 2022-01-18 08:41 | disposition home or self-care (01) | LOC: LAB.S 08:40 | PROVIDERS: ATTEND Nurse Practitioner Family | DX: M10.9 Gout, unspecified (principal) | CPT/HCPCS: 36415; 84550 ==

== ENCOUNTER 2022-10-08 08:28 | Outpatient (CLI) | payer MEDICARE, OTHER ==
[2022-10-08 14:21] LABS: BASOPHILS # (AUTO) 0.1 10^3/uL (0.0-0.1); BASOPHILS % (AUTO) 0.7 %; EOSINOPHILS # (AUTO) 0.5 10^3/uL (0.0-0.7); EOSINOPHILS % (AUTO) 6.9 %; HCT - HEMATOCRIT 50.9 % (37.0-47.0); LYMPHOCYTES # (AUTO) 1.9 10^3/uL (1.5-3.5); MEAN CORPUSCULAR HEMOGLOBIN 27.9 pg (27.0-31.0); MEAN CORPUSCULAR HGB CONC 29.5 g/dL (32.0-36.0); MEAN CORPUSCULAR VOLUME 94.8 fL (81.0-99.0); MEAN PLATELET VOLUME 10.6 fL (7.9-10.8); MONOCYTES # (AUTO) 0.6 10^3/uL (0.0-1.0); NEUTROPHILS # (AUTO) 3.9 10^3/uL (1.5-6.6); NEUTROPHILS % (AUTO) 57.1 %; PLT - PLATELET COUNT 214 10^3/uL (130-450); RED BLOOD COUNT 5.37 10^6/uL (4.20-5.40); RED CELL DISTRIBUTION WIDTH 14.6 % (12.0-15.0); WHITE BLOOD COUNT 6.9 x10^3/uL (4.8-10.8)
[2022-10-08 16:03] LABS: ALBUMIN 3.6 g/dL (3.2-5.5); ALBUMIN/GLOBULIN RATIO 1.1 (1.0-2.2); ALKALINE PHOSPHATASE 93 IU/L (42-121); ALT ALANINE AMINOTRANSFERASE 23 IU/L (10-60); AST ASPARTATE AMINOTRANSFERASE 24 IU/L (10-42); BILIRUBIN,TOTAL 0.5 mg/dL (0.2-1.0); BUN - BLOOD UREA NITROGEN 24 mg/dL (6-20); CALCIUM 9.3 mg/dL (8.5-10.3); CARBON DIOXIDE - CO2 24 mmol/L (21-32); CHLORIDE 107 mmol/L (101-111); CHOL/HDL RATIO 2.5 (<4.4); CHOLESTEROL 92 mg/dL; CREATININE 0.9 mg/dL (0.4-1.0); GFR - MDRD 61 (>89); GLUCOSE 119 mg/dL (70-100); HDL CHOLESTEROL 37 mg/dL; LDL CHOLESTEROL,CALCULATED 18 mg/dL; LDL CHOLESTEROL,DIRECT 34 mg/dL; LDL/HDL RATIO 0.5 (<4.4); POTASSIUM 4.8 mmol/L (3.5-5.0); SODIUM 138 mmol/L (135-145); TOTAL PROTEIN 6.8 g/dL (6.7-8.2); TRIGLYCERIDES 187 mg/dL; VLDL CHOLESTEROL 37 mg/dL
== END 2022-10-08 08:29 | disposition home or self-care (01) ==
LOC: LAB.S 08:28
PROVIDERS: ATTEND Physician Assistant Medical
DX: E78.5 Hyperlipidemia, unspecified (principal)
CPT/HCPCS: 36415; 80053; 80061; 83721; 85025

== ENCOUNTER 2023-02-06 12:42 | Outpatient (CLI) | payer MEDICARE, OTHER ==
--- NOTE | 2023-02-06 14:28 | XRAY Report ---
PROCEDURE: Lumbar Spine 2 View INDICATIONS: ABNORMAL GAIT TECHNIQUE: 3 views of the lumbar spine were acquired. COMPARISON: X-ray lumbar spine 12/30/2012 FINDINGS: Bones: 5 [id number] vertebrae are present. There is rightward scoliotic curvature with apex at L3.. No vertebral body compression fractures. No suspicious bony lesions. Bilateral hip arthropla sties. No visualized acute fracture or dislocation. However, occult injury cannot be excluded. Recomm end short interval imaging follow-up in 7-10 days as clinically indicated for additional evaluation. Multilevel disc and foraminal narrowing are present most severe at L5-S1. Soft tissues: Overlying bowel gas pattern is normal. No suspicious soft tissue calcifications. Pro minent vascular calcifications are present. IMPRESSION: Significant multilevel degenerative changes most severe at L5-S1. Reviewed by: Janee De Los Santos MD on 02/06/2023 2:27 PM PDT Approved by: Janee De Los Santos MD on 02/06/2023 2:27 PM PDT Station ID: [id number]
== END 2023-02-06 12:43 | disposition home or self-care (01) ==
LOC: DI.S 12:42
PROVIDERS: ATTEND Nurse Practitioner Family
DX: R26.89 Other abnormalities of gait and mobility (principal); M47.816 Spondylosis without myelopathy or radiculopathy, lumbar region; M47.817 Spondylosis without myelopathy or radiculopathy, lumbosacral region

== ENCOUNTER 2024-01-22 08:00 | Outpatient (CLI) | payer MEDICARE, OTHER | END 2024-01-22 23:59 | disposition home or self-care (01) | LOC: LAB.S 08:00 | PROVIDERS: ATTEND Physician Assistant Medical | DX: R05.9 Cough, unspecified (principal); R06.02 Shortness of breath ==

== ENCOUNTER 2024-02-13 08:00 | Outpatient (CLI) | payer MEDICARE, OTHER | END 2024-02-13 23:59 | disposition home or self-care (01) | LOC: LAB.S 08:00 | PROVIDERS: ATTEND Emergency Medicine | DX: N30.90 Cystitis, unspecified without hematuria (principal) | CPT/HCPCS: 87077; 87086; 87181 ==